=== PATIENT | male | born 1950 | race Caucasian/White ===

== ENCOUNTER 2020-02-14 09:00 | Observation (INO) | payer MEDICARE ==
[~2020-02-14] VITALS: Ht 175.3 cm; Wt 95.8 kg
[2020-02-14 10:48] LABS: BASOPHILS % (AUTO) 0.6 % (0.0-5.0); EOSINOPHILS % (AUTO) 3.2 % (0.0-8.0); LYMPHOCYTES % (AUTO) 47.9 % (21.0-51.0); MEAN CORPUSCULAR HEMOGLOBIN 29.7 pg (27.0-33.0); MEAN CORPUSCULAR HGB CONC 32.5 g/dL (32.0-36.0); MEAN CORPUSCULAR VOLUME 91.3 fL (79-99); MONOCYTES % (AUTO) 9.6 % (3.0-13.0); NEUTROPHILS % (AUTO) 38.4 % (40.0-77.0); PLATELET COUNT (AUTO) 220 K/uL (130-400); RED BLOOD CELL COUNT(AUTO) 4.82 MIL/uL (4.50-6.20); RED CELL DISTRIBUTION WIDTH 12.7 % (11.0-15.5); WHITE BLOOD COUNT (AUTO) 7.9 K/uL (4.8-10.8)
[2020-02-14 11:01] LABS: POTASSIUM 4.3 mmol/L (3.5-5.1)
[2020-02-18 08:58] VITALS: BP 131/69
[2020-02-18] MEDS ORDERED: DULO30CA52 PO (09:41)
[2020-02-18] MEDS ORDERED: TIZA4TAB5 PO (09:41)
[2020-02-18] MEDS ORDERED: OXYC15TA2 PO (09:41)
[2020-02-18] MEDS ORDERED: PREG25CA18 PO (09:41)
[2020-02-18] MEDS ORDERED: LEVE750T4 PO (09:41)
[2020-02-18] MEDS ORDERED: HYDR-4064 PO (09:41)
[2020-02-19] VITALS (27 sets, daily range): BP systolic 99–138; BP diastolic 58–87
[2020-02-19] MEDS ORDERED: SODIUM CHLORIDE 0.9% 1000ML 1,000 ML IV ONE (06:13)
[2020-02-19] MEDS ORDERED: PROPOFOL 10 MG/ML 20ML VIAL IV ONE (06:55)
[2020-02-19] MEDS ORDERED: SUCCINYLCHOLINE CHLORIDE 20 MG/ML 10 ML VIAL ONE (06:55)
[2020-02-19] MEDS ORDERED: LIDOCAINE PF 2% 5ML ABBOJECT ONE (06:55)
[2020-02-19] MEDS ORDERED: DEXAMETHASONE SOD PHOSPHATE 10MG/ML 1ML VIAL ONE ×2 (06:55→07:02)
[2020-02-19] MEDS ORDERED: ROCURONIUM 10MG/1ML SYR 10 MG/ML ML ONE (06:56)
[2020-02-19] MEDS ORDERED: MIDAZOLAM HCL 1 MG/ML 2ML VIAL ONE ×2 (06:56→07:41)
[2020-02-19] MEDS ORDERED: NEOSTIGMINE 5MG/5ML SYR IV ONE (06:56)
[2020-02-19] MEDS ORDERED: ONDANSETRON HCL 4 MG/2 ML VIAL ONE (06:56)
[2020-02-19] MEDS ORDERED: GLYCOPYRROLATE 1 MG/5 ML SYRINGE ONE (06:56)
[2020-02-19] MEDS ORDERED: FENTANYL CITRATE PF 50 MCG/1 ML 2ML VIAL ONE ×2 (06:57→09:02)
[2020-02-19] MEDS ORDERED: BUPIVACAINE/EPI/PF 0.25% 10ML VIAL IJ ONE (07:08)
[2020-02-19] MEDS ORDERED: CEFAZOLIN SODIUM 1 GM VIAL ONE (07:08)
[2020-02-19] MEDS ORDERED: DURAMORPH PF1 MG/ML 10ML AMP IV ONE (07:08)
[2020-02-19] MEDS ORDERED: THROMBIN-JMI 20000 UNIT KIT TP ONE (07:09)
[2020-02-19] MEDS: CEFAZOLIN SODIUM 1 GM VIAL ONE ×2 (07:20→08:00)
[2020-02-19] MEDS ORDERED: BUPIVACAINE/EPI/PF 0.25% 30ML VIAL IJ SCH (07:30)
[2020-02-19] MEDS: BUPIVACAINE/EPI/PF 0.25% 50 ML VIAL IJ SCH ×2 (07:30→08:09)
[2020-02-19] MEDS ORDERED: CEFAZOLIN SODIUM 1 GM VIAL IVP SCH (12:50)
[2020-02-19] MEDS ORDERED: LACTATED RINGERS 1000ML 1,000 ML IV SCH (13:00)
[2020-02-19] MEDS ORDERED: PROMETHAZINE HCL 25 MG/ML 1ML AMPULE IM PRN (13:00)
[2020-02-19] MEDS ORDERED: SODIUM CHLORIDE 0.9% 10 ML VIAL IVP PRN (13:00)
[2020-02-19] MEDS: MORPHINE SULFATE 2 MG/ML 1ML SYG IVP PRN ×3 (13:02→20:03)
[2020-02-19] MEDS: DEXAMETHASONE SOD PHOSPHATE 4 MG/ML 1ML VIAL IVP SCH ×2 (13:10→20:08)
[2020-02-19] MEDS: HYDROCODONE/ACETAMINOPHEN 5/325 MG TAB PO PRN ×2 (15:28→20:03)
[2020-02-20] MEDS: DEXAMETHASONE SOD PHOSPHATE 4 MG/ML 1ML VIAL IVP SCH ×2 (01:34→06:03)
[2020-02-20] MEDS: MORPHINE SULFATE 2 MG/ML 1ML SYG IVP PRN ×2 (01:37→06:03)
[2020-02-20] MEDS: HYDROCODONE/ACETAMINOPHEN 5/325 MG TAB PO PRN (01:37)
[2020-02-20 04:00] VITALS: BP 120/83
[2020-02-20 09:00] VITALS: BP 112/68
--- NOTE | 2020-02-20 09:30 | NUR ---
OFE REMOVED.,NO SIGNS OF BLEED. TIP INTACT. RYLEE INTACT TO INCISON , CLEANED WITH BETADINE. INCISION APPROXIMATED. NO SIGNS OF BLEED OR SWELLING .DRESSING PLACED . REMIANS DRY AND INTACT PATIENT AMBULATED WITH ASSIST. PATIENT VOIDED ON OWN ALREADY . DISCHARGE PRESCRIPTION AND INSTRUCTION GIVEN ,PATIENT AND VERBALIZED UNDERSTANDING
== END 2020-02-20 11:00 | disposition home or self-care (01) ==
LOC: EDSTATUS 09:00 → DAHIP 02-19 05:50 → 3BH 02-19 11:54
PROVIDERS: ADMIT Neurological Surgery; ATTEND Neurological Surgery
DX: M48.061 Spinal stenosis, lumbar region without neurogenic claudication (principal); Z20.89 Contact with and (suspected) exposure to other communicable diseases; Z90.49 Acquired absence of other specified parts of digestive tract
CPT/HCPCS: 36415; 63047; 63048; 72020; 80048; 85025; 96361; 96374; 96375; 96376 ×2; A4215; A4221; A4222; A4223; A4344; A4649 ×4; A4657; A6260; G0378 ×24; J0330; J0690 ×3; J1100 ×6; J2001; J2250 ×2; J2274; J2405; J2704; J2710; J3010 ×2; J3490 ×3; J7030 ×2; J7120 ×2; U0003

== ENCOUNTER → 2020-05-20 | Outpatient (CLI) | payer OTHER ==
[~2020-05-20] MED LIST: DULO30CA52 PO; HYDR-4064 PO; LEVE750T4 PO; OXYC15TA2 PO; PREG25CA18 PO; TIZA4TAB5 PO
== END | disposition home or self-care (01) ==
LOC: OIH 17:03
PROVIDERS: ATTEND Family Medicine Sports Medicine
DX: Z13.6 Encounter for screening for cardiovascular disorders (principal)
CPT/HCPCS: 75571

== ENCOUNTER → 2020-05-23 | Outpatient (CLI) | payer MEDICARE | END | disposition home or self-care (01) | LOC: RAH 10:09 | PROVIDERS: ATTEND Obstetrics & Gynecology | DX: M47.812 Spondylosis without myelopathy or radiculopathy, cervical region (principal); M48.02 Spinal stenosis, cervical region | CPT/HCPCS: 72050 ==

== ENCOUNTER 2020-06-05 06:02 | Observation (INO) | payer MEDICARE ==
[2020-06-02 10:15] VITALS: BP 127/74
[2020-06-02 10:29] LABS: BASOPHILS % (AUTO) 0.6 % (0.0-5.0); EOSINOPHILS % (AUTO) 5.3 % (0.0-8.0); HEMATOCRIT 43.7 % (42-54); LYMPHOCYTES % (AUTO) 40.9 % (21.0-51.0); MEAN CORPUSCULAR HEMOGLOBIN 29.4 pg (27.0-33.0); MEAN CORPUSCULAR HGB CONC 32.3 g/dL (32.0-36.0); MEAN CORPUSCULAR VOLUME 91.2 fL (79-99); MONOCYTES % (AUTO) 13.8 % (3.0-13.0); PLATELET COUNT (AUTO) 189 K/uL (130-400); RED BLOOD CELL COUNT(AUTO) 4.79 MIL/uL (4.50-6.20); WHITE BLOOD COUNT (AUTO) 7.1 K/uL (4.8-10.8)
[2020-06-02] MEDS: CEFAZOLIN SODIUM 1 GM VIAL IVP SCH (10:45)
[2020-06-02 10:47] LABS: POTASSIUM 4.2 mmol/L (3.5-5.1)
[2020-06-05] VITALS (23 sets, daily range): BP systolic 114–148; BP diastolic 74–93
[~2020-06-05] VITALS: Ht 175.3 cm; Wt 101.5 kg
[~2020-06-05 06:02] MED LIST changes: -DULO30CA52 PO; -HYDR-4064 PO; -PREG25CA18 PO
[2020-06-05] MEDS ORDERED: LACTATED RINGERS 1000ML 1,000 ML IV ONE (06:31)
[2020-06-05] MEDS ORDERED: CEFAZOLIN SODIUM 1 GM VIAL ONE (06:45)
[2020-06-05] MEDS ORDERED: BUPIVACAINE/EPI/PF 0.25% 30ML VIAL IJ ONE (06:45)
[2020-06-05] MEDS ORDERED: THROMBIN-JMI 20000 UNIT KIT TP ONE (06:46)
[2020-06-05] MEDS ORDERED: LIDOCAINE PF 100MG/5ML (2%) SYRINGE 5ML ONE (07:26)
[2020-06-05] MEDS ORDERED: PHENYLEPHRINE HCL 10 MG/ML 1ML VIAL IV ONE (07:26)
[2020-06-05] MEDS ORDERED: SUCCINYLCHOLINE CHLORIDE 20 MG/ML 10 ML VIAL ONE (07:26)
[2020-06-05] MEDS ORDERED: ROCURONIUM 10MG/1ML SYR 10 MG/ML ML ONE (07:27)
[2020-06-05] MEDS ORDERED: FENTANYL CITRATE PF 50 MCG/1 ML 2ML VIAL ONE (07:27)
[2020-06-05] MEDS ORDERED: MIDAZOLAM HCL 1 MG/ML 2ML VIAL ONE (07:27)
[2020-06-05] MEDS ORDERED: PROPOFOL 10 MG/ML 20ML VIAL IV ONE (07:27)
[2020-06-05] MEDS ORDERED: DEXAMETHASONE SOD PHOSPHATE 10MG/ML 1ML VIAL ONE (07:29)
[2020-06-05] MEDS ORDERED: MANNITOL 20% 500ML BAG 500 ML IV ONE (07:47)
[2020-06-05] MEDS: CEFAZOLIN SODIUM 1 GM VIAL IVP SCH ×3 (07:50→15:23)
[2020-06-05] MEDS ORDERED: KETOROLAC 30MG VIAL (30MG/ML) ONE (10:49)
[2020-06-05] MEDS ORDERED: NEOSTIGMINE 5MG/5ML SYR IV ONE (10:49)
[2020-06-05] MEDS ORDERED: GLYCOPYRROLATE 1 MG/5 ML SYRINGE ONE (10:49)
[2020-06-05] MEDS ORDERED: ONDANSETRON HCL 4 MG/2 ML VIAL ONE (10:49)
[2020-06-05] MEDS: DEXAMETHASONE SOD PHOSPHATE 4 MG/ML 1ML VIAL IVP SCH ×3 (11:30→22:54)
[2020-06-05] MEDS: LACTATED RINGERS 1000ML 1,000 ML IV SCH ×2 (11:30→22:54)
[2020-06-05] MEDS ORDERED: PROMETHAZINE HCL 25 MG/ML 1ML AMPULE IM PRN (11:30)
[2020-06-05] MEDS ORDERED: SODIUM CHLORIDE 0.9% 10 ML VIAL IVP PRN (11:30)
[2020-06-05] MEDS ORDERED: MEPERIDINE-PF 25 MG/ML SYG ONE ×2 (11:52→11:57)
[2020-06-05] MEDS: MORPHINE 2 MG SYG (2MG/1ML) IVP PRN ×4 (15:23→22:07)
[2020-06-05] MEDS: HYDROCODONE/ACETAMINOPHEN 5/325 MG TAB PO PRN ×2 (16:13→20:44)
[2020-06-05] MEDS: LEVETIRACETAM 250 MG TABLET PO SCH ×2 (19:39→19:40)
[2020-06-05] MEDS ORDERED: TIZANIDINE HCL 2 MG TABLET PO SCH (21:00)
[2020-06-06] MEDS: MORPHINE 2 MG SYG (2MG/1ML) IVP PRN ×4 (02:42→11:27)
[2020-06-06] MEDS: HYDROCODONE/ACETAMINOPHEN 5/325 MG TAB PO PRN ×2 (03:37→08:02)
[2020-06-06 04:35] VITALS: BP 135/76
[2020-06-06] MEDS: DEXAMETHASONE SOD PHOSPHATE 4 MG/ML 1ML VIAL IVP SCH (05:59)
[2020-06-06 08:37] VITALS: BP 123/73
[2020-06-06] MEDS: LEVETIRACETAM 250 MG TABLET PO SCH (09:00)
== END 2020-06-06 11:55 | disposition home or self-care (01) ==
LOC: OBSVTOIN 06:02 → INTOOBSV 06:02 → DAHIP 06:02 → EDSTATUS 07:30 → 4AH 12:13
PROVIDERS: ADMIT Neurological Surgery; ATTEND Neurological Surgery
DX: M48.02 Spinal stenosis, cervical region (principal); Z20.822 Contact with and (suspected) exposure to COVID-19; G95.89 Other specified diseases of spinal cord; G40.909 Epilepsy, unspecified, not intractable, without status epilepticus; T17.820A Food in other parts of respiratory tract causing asphyxiation, initial encounter; Z98.1 Arthrodesis status; Z79.899 Other long term (current) drug therapy
CPT/HCPCS: 20930; 22551; 22853; 36415; 72020; 74230; 80048; 85025; 88300; 92610; 92611; 96361; 96374; 96375; 96376 ×2; A4215; A4221; A4222; A4223; A4344; A4510; A4600; A4649 ×2; A4663; A6010; A6260; C1713; G0378 ×24; J0330; J0690 ×3; J1100 ×5; J1885; J2001; J2175 ×2; J2250; J2370; J2405; J2704; J2710; J3010; J3490 ×3; J7120 ×2; U0003

== ENCOUNTER → 2020-06-27 | Outpatient (CLI) | payer MEDICARE | END | disposition home or self-care (01) | LOC: RAH 08:46 | PROVIDERS: ATTEND Neurological Surgery | DX: M43.22 Fusion of spine, cervical region (principal); M47.812 Spondylosis without myelopathy or radiculopathy, cervical region; M48.02 Spinal stenosis, cervical region | CPT/HCPCS: 72040 ==

== ENCOUNTER → 2022-04-08 | Outpatient (CLI) | payer MEDICARE ==
[~2022-04-08] MED LIST changes: +TIZA-211 PO; -TIZA4TAB5 PO
== END | disposition home or self-care (01) ==
LOC: LAB 12:52
PROVIDERS: ATTEND Neurological Surgery
DX: M47.22 Other spondylosis with radiculopathy, cervical region (principal)
CPT/HCPCS: 36415; 82565; 84520

== ENCOUNTER → 2022-04-12 | Outpatient (CLI) | payer MEDICARE ==
[~2022-04-12] MED LIST changes: +GADOTERATE MEGLUMINE 10 MMOL/20 ML VIAL IV ONE
== END | disposition home or self-care (01) ==
LOC: RAH 09:00
PROVIDERS: ATTEND Neurological Surgery
DX: M47.22 Other spondylosis with radiculopathy, cervical region (principal); M48.02 Spinal stenosis, cervical region; Z98.1 Arthrodesis status; Z98.890 Other specified postprocedural states
CPT/HCPCS: 72156; A9575

== ENCOUNTER → 2022-05-21 | Outpatient (CLI) | payer MEDICARE ==
[~2022-05-21] MED LIST changes: -GADOTERATE MEGLUMINE 10 MMOL/20 ML VIAL IV ONE
[2022-05-21 12:44] LABS: CREATININE 1.1 mg/dL (0.5-1.5)
== END | disposition home or self-care (01) ==
LOC: LAB 11:42
PROVIDERS: ATTEND Neurological Surgery
DX: M54.16 Radiculopathy, lumbar region (principal)
CPT/HCPCS: 36415; 82565; 84520

== ENCOUNTER → 2022-06-11 | Outpatient (CLI) | payer MEDICARE ==
[~2022-06-11] MED LIST changes: +GADOTERATE MEGLUMINE 10 MMOL/20 ML VIAL IV ONE
== END | disposition home or self-care (01) ==
LOC: RAH 09:28
PROVIDERS: ATTEND Neurological Surgery
DX: M51.17 Intervertebral disc disorders with radiculopathy, lumbosacral region (principal); M48.07 Spinal stenosis, lumbosacral region; R25.2 Cramp and spasm; Z98.1 Arthrodesis status
CPT/HCPCS: 72158; A9575